=== PATIENT | female | born 1955 | race Caucasian/White ===

== ENCOUNTER 2016-06-10 22:37 | Inpatient (IN) | payer OTHER ==
[~2016-06-10] VITALS: Ht 162.6 cm; Wt 78.4 kg
[2016-06-10 23:37] VITALS: Ht 162.6 cm; Wt 78.4 kg
[2016-06-11] MEDS ORDERED: traMADol 50 MG TAB GTB PRN
[2016-06-11] MEDS ORDERED: hydrALAzine 20 MG INJ IV PRN
[2016-06-11] MEDS ORDERED: hydrALAzine 20 MG INJ IV ONE
[2016-06-11] MEDS ORDERED: ONDANSETRON 4 MG INJ IV PRN
[2016-06-11] MEDS ORDERED: KETOROLAC 30 MG INJ IV PRN
[2016-06-11] MEDS ORDERED: GLUCAGON 1 MG INJ IM PRN (01:00)
[2016-06-11] MEDS ORDERED: GLUCOSE GEL 15 GRAM TUBE BUCCAL PRN (01:00)
[2016-06-11] MEDS ORDERED: DEXTROSE 50% 50 ML SYRINGE IV PRN ×2 (01:00)
[2016-06-11] MEDS ORDERED: GLUCOSE GEL 15 GRAM TUBE PO PRN ×2 (01:00)
[2016-06-11] MEDS ORDERED: INSULIN GLARGINE [LANtus] 3 ML PEN SC ONE (01:00)
[2016-06-11] MEDS: DEXTROSE 5%-0.45% NACL 1,000 ML IV SCH ×4 (01:01→21:00)
[2016-06-11] MEDS: INSULIN ASPART [NOVOLOG] 3 ML PEN SC SCH ×5 (01:11→23:23)
[2016-06-11 05:06] LABS: ADD SCAN DIFF NO
[2016-06-11 05:10] LABS: BASOPHILS % 0.1 % (0.0-2.0); EOSINOPHILS % 0.3 % (0.0-7.0); HEMATOCRIT 37.8 % (37.0-47.0); HEMOGLOBIN 12.7 g/dl (12.0-16.0); LYMPHOCYTES % 14.8 % (15.0-51.0); MEAN CORPUSCULAR HEMOGLOBIN 30.1 pg (29.0-33.0); MEAN CORPUSCULAR HGB CONC 33.6 g/dl (32.0-37.0); MEAN CORPUSCULAR VOLUME 89.6 fl (82.0-101.0); MONOCYTE # 0.8 10^3/ul (0.3-0.9); NEUTROPHIL # 10.8 10^3/ul (1.6-7.5); NEUTROPHILS % 78.4 % (39.0-77.0); PLATELET COUNT 316 10^3/UL (140-415); RED BLOOD COUNT 4.22 10^6/ul (4.20-5.40); RED CELL DISTRIBUTION WIDTH 13.6 % (11.5-14.5); WHITE BLOOD COUNT 13.7 10^3/ul (4.8-10.8)
[2016-06-11 05:23] LABS: ALBUMIN 3.6 g/dl (3.3-4.9)
[2016-06-11 05:26] LABS: ALBUMIN/GLOBULIN RATIO 0.94; BILIRUBIN,INDIRECT 1.3 mg/dl (0-1.1); BILIRUBIN,TOTAL 1.3 mg/dl (0.2-1.3); CREATININE 0.64 mg/dl (0.44-1.00); TOTAL PROTEIN 7.4 g/dl (6.1-8.1)
[2016-06-11 05:27] LABS: CALCIUM 8.6 mg/dl (8.4-10.2); MAGNESIUM 1.9 mg/dl (1.7-2.5)
--- NOTE | 2016-06-11 06:32 | HP ---
DATE OF ADMISSION: 06/10/2016 TIME SEEN: ____ CHIEF COMPLAINT: Abdominal pain. HISTORY OF PRESENT ILLNESS: The patient is a 60-year-old female with a history of diabetes, hyperte nsion, dyslipidemia who presented to [facility] with epigastric and right upper quadrant ab dominal pain which started after drinking coffee this morning. She also reported associated 3 episo azeb of nonbloody, nonbilious vomiting. She denies any fever, chills, chest pain, shortness of breat h. Abdominal ultrasound at the outside hospital shows hepatic steatosis, gallbladder sludge, and a prominent caliber common bile duct, cannot exclude recently passed calculus or choledocholithiasis. Abdominal x-ray was done which showed prominent stool pattern and sclerotic changes of the sacroili ac joints. She was transferred here for insurance reasons. Currently, the patient is still complai jenny of abdominal pain, but improved as compared to the initial onset. The patient is not entirely sure about her past medical history and also she does not know her home medications, and unfortunate ly her medication was taken back home by family members by mistake. She is currently denying any na usea, vomiting, fever, chills, chest pain or shortness of breath. REVIEW OF SYSTEMS: A 12-point review of systems was performed, negative except as mentioned in HPI. PAST MEDICAL HISTORY: Hypertension, diabetes, and dyslipidemia. PAST SURGICAL HISTORY: Hysterectomy, . SOCIAL HISTORY: Denied a history of tobacco, alcohol, or illicit drug use. ALLERGIES: MORPHINE. HOME MEDICATIONS: 1. Formoterol inhaler. 2. Glipizide. 3. Hydrochlorothiazide. 4. [place]. 5. Insulin. 6. Lisinopril. 7. Metformin. 8. Naproxen. 9. Ranitidine. 10. Zocor. 11. Januvia. 12. Tramadol. PHYSICAL EXAMINATION: GENERAL: The patient lying in bed in no acute distress. She actually looks comfortable. Initially she was sleepy, but arousable. HEENT: No obvious head deformity. Pupils are reactive to light. Extraocular muscles intact. CARDIOVASCULAR: Slightly diaphoretic with regular rhythm. LUNGS: Clear. ABDOMEN: Soft. There is tenderness to deep palpation in the right upper quadrant area and to some extent the epigastric area with no guarding, no rigidity, no rebound tenderness. EXTREMITIES: No edema. NEUROLOGIC: No focal deficits. LABORATORY: From outside hospital shows a WBC of 17.6, hemoglobin 13.9, platelet count 305. Sodium 140, potassium 4.2, chloride 101, bicarbonate 25, BUN 13, creatinine 0.67, glucose 180, total prote in 7.3, albumin 4.3, calcium 9.3. Total bilirubin 1.1, alkaline phosphatase 70, AST 75, ALT 70. IMAGING: KUB and abdominal ultrasound showed from [place] with results as mentioned in the HPI. IMPRESSION: 1. Probable cholecystitis with choledocholithiasis. 2. Abdominal pain, most likely secondary to above. 3. Elevated transaminases, likely secondary to above. 4. Leukocytosis, again likely secondary to cholecystitis. 5. History of hypertension. 6. History of diabetes. 7. History of dyslipidemia. PLAN: Will keep her n.p.o. with IV fluid. We will provide pain medication and antiemetics as neede d. We will repeat a right upper quadrant ultrasound here, and based on the results we might follow it up with MRCP if there is any biliary dilatation or other findings concerning for choledocholithia sis. We will place a surgical consultation if it has not already been done when she initially came in to [facility]. Will check an A1c in the morning and for now she will be placed on insulin while in [facility] for her diabetes. Further workup and management per clinical course. Dictated By: HEDY APPLE/NAYAN Conf#: [id number] DID#: [id number]
--- NOTE | 2016-06-11 07:00 | RADRPT ---
PROCEDURE: US Abdomen. CLINICAL INDICATION: Right upper quadrant pain TECHNIQUE: Omer scale and color Doppler imaging of the right upper quadrant COMPARISON: None FINDINGS: The aorta and visualized inferior vena cava are unremarkable in appearance. The liver is diffusely echogenic suggesting hepatic steatosis. No definite focal liver lesion. No gallstones or sludge is s een. The gallbladder wall appears slightly prominent and 4 mm. There is mild pericholecystic fluid . No mention was made of a sonographic Christopher's sign. No intrahepatic ductal dilatation is seen. Hepatopedal flow is seen in the main portal vein. The common bile duct is dilated, measuring 8.6 mm. The right kidney measures 13.8 cm. No hydronephrosis or renal calculi are seen. The pancreas is p artially obscured by bowel gas. No ascites is seen. IMPRESSION: Study slightly limited by bowel gas. . Slight gallbladder wall thickening with adjacent pericholec ystic fluid but without visible stones. HIDA scan may be helpful if acalculous cholecystitis is fransico pected. Slightly dilated common bile duct. Consider MRCP to evaluate for choledocholithiasis. Hep atic steatosis. RPTAT: HLBE Physician Osman Date Time Electronically viewed and signed by Physician Osman on 06/11/2016 07:00 MALU/
[2016-06-11] MEDS: FAMOTIDINE 20 MG INJ IV SCH ×2 (08:25→21:00)
[2016-06-11 08:38] VITALS: BP 137/65; RESP 20
[2016-06-11] MEDS ORDERED: LANT3I SC (11:48)
[2016-06-11] MEDS ORDERED: SITA100T8 PO (11:48)
[2016-06-11] MEDS ORDERED: LISI40TA9 PO (11:48)
[2016-06-11] MEDS ORDERED: ASPI81TA3 PO (11:48)
[2016-06-11] MEDS ORDERED: CHOL100012 PO (11:48)
[2016-06-11] MEDS ORDERED: ZOC20 PO (11:48)
[2016-06-11] MEDS ORDERED: HYDR12.53 PO (11:48)
[2016-06-11] MEDS ORDERED: INSU100C3 SQ (11:48)
[2016-06-11] MEDS ORDERED: METF-731 PO (11:48)
[2016-06-11] MEDS ORDERED: CAPSAICIN 0.025% TOPICAL (11:48)
[2016-06-11] MEDS ORDERED: GLIM4TAB PO (11:48)
[2016-06-11] MEDS ORDERED: POLY17PO6 PO (11:48)
[2016-06-11] MEDS ORDERED: OMEP20CA16 PO (11:48)
[2016-06-11] MEDS ORDERED: NAPR-260 PO (11:48)
[2016-06-11] MEDS ORDERED: DIPHENHYDRAMINE 50 MG INJ IV PRN (12:00)
[2016-06-11] MEDS: HYDROmorphONE 1 MG/ML SYG IV PRN (15:18)
--- NOTE | 2016-06-11 15:19 | PN ---
Date/Time of Note Date/Time of Note DATE: 06/11/16 TIME: 15:13 Assessment/Plan VTE Prophylaxis VTE Prophylaxis Intervention: SCD's Lines/Catheters IV [facility]ter [facility] (from [facility] Peripheral IV Urinary Cath still in place: No Assessment/Plan Chief Complaint/Hosp Course Assessment and plan 1. Cholecystitis with suspected choledocholithiasis. Gallbladder ultrasound with suspicion for cholecystitis. Follow-up on MRCP for possible choledocholithiasis. Surgery consulted. We'll get child nutrition manager pending clinical course. Keep patient npo for now. Continue with analgesics as needed as well as IV hydration 2. Transaminitis likely secondary to #1. Monitor liver enzymes. Follow up on MRCP 3. Leukocytosis.. Secondary to #1. Continue on antibiotics 4. Diabetes. Continue insulin regimen. Will adjust as needed. Of note A1c at 10. Will get conservation educator to follow Disposition and plan: Follow up on MRCP. Surgeon to follow. Continue IV hydration. Discussed but of care with Dr. Rodrigues Problems: Subjective 24 Hr Interval Summary Free Text/Dictation Reports having moderate abdominal pain. Exam/Review of Systems Vital Signs Vitals Vital Signs Date Time Temp Pulse Resp B/P Pulse Ox O2 Delivery O2 Flow Rate FiO2 06/11/16 08:38 98.2 97 20 137/65 95 Intake and Output 06/10/16 06/10/16 06/11/16 15:00 23:00 07:00 Intake Total 650 ml Output Total 950 ml Balance -300 ml Exam General: Mild distress secondary to abdominal pain. Denies any nausea Eyes: pupils equal round, Anicteric sclera Neck: Supple nontender, no JVD Cardiac: Regular rate was auscultated with S1-S2 noted Pulmonary: No obvious wheezing or rhonchi GI: Upon palpation on epigastric as well as right upper abdominal quadrant. Bowel sounds active Extremities: No Obvious edema bilateral lower extremities Skin: Clean dry and intact Neurologic: Alert to person place and time and situation Results Result Diagram: 06/11/1641906/11/16419 Results 24 hrs Laboratory Tests Test 06/11/16 00:33 06/11/16 04:20 06/11/16 05:31 06/11/16 12:10 Bedside Glucose 164 161 168 Alanine Aminotransferase (ALT/SGPT) 82 H Albumin 3.6 Albumin/Globulin Ratio 0.94 Alkaline Phosphatase 70 Anion Gap 17 H Aspartate Amino Transf (AST/SGOT) 63 H Basophils # 0.0 Basophils % 0.1 Blood Urea Nitrogen 14 Calcium Level 8.6 Carbon Dioxide Level 26 Chloride Level 105 Creatinine 0.64 Direct Bilirubin 0.00 Eosinophils # 0.0 Eosinophils % 0.3 Globulin 3.80 H Glucose Level 184 Hematocrit 37.8 Hemoglobin 12.7 Hemoglobin A1c 10.0 H Indirect Bilirubin 1.3 H Lymphocytes # 2.0 Lymphocytes % 14.8 L Magnesium Level 1.9 Mean Corpuscular Hemoglobin 30.1 Mean Corpuscular Hemoglobin Concent 33.6 Mean Corpuscular Volume 89.6 Mean Platelet Volume 10.0 Monocytes # 0.8 Monocytes % 6.0 Neutrophils # 10.8 H Neutrophils % 78.4 H Nucleated Red Blood Cells # 0.0 Nucleated Red Blood Cells % 0.0 Platelet Count 316 Potassium Level 4.0 Red Blood Count 4.22 Red Cell Distribution Width 13.6 Sodium Level 144 Total Bilirubin 1.3 Total Protein 7.4 White Blood Count 13.7 H Medications Medications Current Medications Dextrose/Sodium Chloride (D5-1/2ns) 1,000 ml @ 100 mls/hr Q10H IV Last administered on 06/11/16 01:01; Admin Dose 100 MLS/HR; Start 06/11/16 at 00:00 Ketorolac Tromethamine (Toradol) 30 mg Q6H PRN IV PAIN; Start 06/11/16 at 00:00 ; Stop 06/14/16 at 00:00 Tramadol HCl (Ultram) 50 mg Q6H PRN GTB PAIN; Start 06/11/16 at 00:00 Ondansetron HCl (Zofran Inj) 4 mg Q6H PRN IV NAUSEA AND/OR VOMITING; Start 06/11 at 00:00 Famotidine (Pepcid Iv) 20 mg BID IV Last administered on 06/11/16 08:25; Admin Dose 20 MG; Start 06/11/16 at 09:00 Hydralazine HCl (Apresoline) 10 mg Q4H PRN IV SBP GREATER 160; Start 06/11/16 at 00:00 Insulin Glargine (Lantus) 10 unit HS SC ; Start 06/11/16 at 21:00 Insulin Aspart (Novolog Insulin Pen) NOVOLOG *MODERATE* ALGORI... Q6 SC Last administered on 06/11/16t 05:39; Admin Dose 2 UNIT; Start 06/11/16 at 01:00 Miscellaneous Information 1 ea NOTE XX ; Start 06/11/16 at 01:00 Glucose (Glutose) 15 gm Q15M PRN PO DECREASED GLUCOSE; Start 06/11/16 at 01:00 Glucose (Glutose) 22.5 gm Q15M PRN PO DECREASED GLUCOSE; Start 06/11/16 at 01:00 Dextrose (D50w Syringe) 25 ml Q15M PRN IV DECREASED GLUCOSE; Start 06/11/16 at 01:00 Dextrose (D50w Syringe) 50 ml Q15M PRN IV DECREASED GLUCOSE; Start 06/11/16 at 01:00 Glucagon (Glucagen) 1 mg Q15M PRN IM DECREASED GLUCOSE; Start 06/11/16 at 01:00 Glucose (Glutose) 15 gm Q15M PRN BUCCAL DECREASED GLUCOSE; Start 06/11/16 at 01: 00 Hydromorphone HCl (Dilaudid) 0.5 mg Q2 PRN IV PAIN; Start 06/11/16 at 12:00 Diphenhydramine HCl (Benadryl) 25 mg ONCE PRN IV allergy; Start 06/11/16 at 12: 00; Stop 06/13/16 at 11:59 Methylprednisolone Sodium Succinate (Solu-Medrol) 80 mg DAILY IM ; Start at 18:00 ARNAV DENT Jun 11, 2016 15:19
--- NOTE | 2016-06-11 17:19 | RADRPT ---
PROCEDURE: MRCP. CLINICAL INDICATION: Abdominal pain, suspected choledocholithiasis. TECHNIQUE: MRCP was performed. Patient was examined without contrast. 3-D coronal rotating MIP i mages of the biliary tree are available for review. COMPARISON: Ultrasound, 06/11/2016 FINDINGS: The gallbladder is distended and contains small gallstones. Gallbladder wall appears mildly thicken ed. No pericholecystic inflammation is identified. There is no intra or extrahepatic biliary dilat ation. No common duct stone, stricture or filling defect is identified. Pancreatic duct is normal in caliber. Hepatomegaly is noted (19 cm), without evidence of focal hepatic mass. Pancreas, spleen, adrenal gl ands and kidneys are unremarkable. There is no obstructive uropathy. The stomach is grossly unrema rkable. Abdominal aorta is normal in caliber. There is no retroperitoneal or nabil hepatis lymphad enopathy. No bowel obstruction, abscess or ascites is seen. The surrounding osseous structures are remarkable for degenerative spondylosis of the spine. IMPRESSION: 1. Cholelithiasis and/or gallbladder sludge are noted. Gallbladder wall appears mildly thickened. Cholecystitis is not definitely excluded - consider nuclear medicine HIDA scan for further evaluati on, if clinically warranted. 2. No choledocholithiasis or biliary dilatation is seen. 3. There is mild hepatomegaly. RPTAT: TT .George Whitehead MD, Date Time Electronically viewed and signed by .George Whitehead MD, on 06/11/2016 17:19 .R/
[2016-06-11] MEDS: PIPER-TAZO 3.375 GM IV (PMX) 100 ML IVPB SCH ×2 (17:23→23:21)
[2016-06-11] MEDS: METHYLPREDNISOLONE 125 MG INJ IV SCH (17:30)
[2016-06-11] MEDS ORDERED: METHYLPREDNISOLONE 125 MG INJ IM SCH (18:00)
[2016-06-11 20:17] VITALS: BP 153/69; RESP 18
--- NOTE | 2016-06-11 20:48 | CONS ---
Date/Time of Note Date/Time of Note DATE: 06/11/16 TIME: 20:40 Assessment/Plan Assessment/Plan Chief Complaint/Hosp Course 60-year-old female with gallstone pancreatitis and acute cholecystitis * MRCP confirms the presence of small gallstones with gallbladder wall thickening and trace pericholecystic fluid * Lipase level greater than 3000 at outside hospital. Check levels in a.m. * Monitor LFTs * Nothing by mouth/IV fluid hydration/pain control * Medical clearance for cholecystectomy upon near normalization of lipase levels The above was discussed with the patient in detail. I ensured that all of her questions were answered. Further recommendations will be made based on patient' s clinical course. Problems: Consultation Date/Type/Reason Admit Date/Time Jun 10, 2016 at 23:26 Date of Consultation: Jun 11, 2016 Type of Consultation: GENERAL SURGERY Reason for Consultation Abdominal pain Hx of Present Illness The patient is a 60-year-old female with a history of diabetes, hypertension, dyslipidemia who was transferred from [facility] with epigastric and right upper quadrant abdominal pain which started yesterday morning. It was associated with nonbilious vomiting and constipation. She denies any fever, chills, chest pain, shortness of breath. She describes the pain as radiating to her back and right shoulder. At [facility] she was found to have a leukocytosis of 17,000 with mildly elevated total bilirubin and transaminase levels. Her lipase level was greater than 3000. Abdominal ultrasound at the outside hospital shows hepatic steatosis, gallbladder sludge, and a prominent caliber common bile duct, cannot exclude recently passed calculus or choledocholithiasis. On arrival to [facility], a repeat ultrasound again did not show any evidence of choledocholithiasis but did show mildly dilated common bile duct. She then underwent an MRCP which did show small gallstones with mild gallbladder wall thickening and trace pericholecystic fluid. Her leukocytosis has improved somewhat. Her transaminases and total bilirubin remained very mildly elevated. Lipase level has not been done. Currently she reports improvement in her pain and complains of headache. 14 point review of systems was conducted and was negative except for that which is mentioned in the history of present illness Past Medical History As in history of present illness Past Surgical History and hysterectomy for fibroids Social History Smoking Status: Former smoker Exam/Review of Systems Vital Signs Vitals Vital Signs Date Time Temp Pulse Resp B/P Pulse Ox O2 Delivery O2 Flow Rate FiO2 06/11/16 20:17 98.5 92 18 153/69 92 Intake and Output 06/10/16 06/10/16 06/11/16 15:00 23:00 07:00 Intake Total 650 ml Output Total 950 ml Balance -300 ml Exam GENERAL: Awake, alert, oriented 3. No acute distress. SKIN: No jaundice. HEENT: PERRLA, EOMI, No Scleral Icterus NECK: Supple without JVD CARDIOVASCULAR: S1S2, regular rate and rhythm. No murmurs appreciated. RESPIRATORY: Clear to auscultation bilaterally. ABDOMEN: Obese, Soft, bowel sounds present, nondistended, there is epigastric and right upper quadrant tenderness to palpation without any evidence of diffuse peritonitis. EXTREMITIES: Free range of motion 4. No cyanosis, edema, or clubbing. NEUROLOGIC: Cranial nerves II-XII are intact. Sensation is intact grossly. Results Result Diagram: 06/11/16 0420 06/11/16 0420 Results 24 hrs Laboratory Tests Test 06/11/16 00:33 06/11/16 04:20 06/11/16 05:31 06/11/16 12:10 Bedside Glucose 164 161 168 Alanine Aminotransferase (ALT/SGPT) 82 H Albumin 3.6 Albumin/Globulin Ratio 0.94 Alkaline Phosphatase 70 Anion Gap 17 H Aspartate Amino Transf (AST/SGOT) 63 H Basophils # 0.0 Basophils % 0.1 Blood Urea Nitrogen 14 Calcium Level 8.6 Carbon Dioxide Level 26 Chloride Level 105 Creatinine 0.64 Direct Bilirubin 0.00 Eosinophils # 0.0 Eosinophils % 0.3 Globulin 3.80 H Glucose Level 184 Hematocrit 37.8 Hemoglobin 12.7 Hemoglobin A1c 10.0 H Indirect Bilirubin 1.3 H Lymphocytes # 2.0 Lymphocytes % 14.8 L Magnesium Level 1.9 Mean Corpuscular Hemoglobin 30.1 Mean Corpuscular Hemoglobin Concent 33.6 Mean Corpuscular Volume 89.6 Mean Platelet Volume 10.0 Monocytes # 0.8 Monocytes % 6.0 Neutrophils # 10.8 H Neutrophils % 78.4 H Nucleated Red Blood Cells # 0.0 Nucleated Red Blood Cells % 0.0 Platelet Count 316 Potassium Level 4.0 Red Blood Count 4.22 Red Cell Distribution Width 13.6 Sodium Level 144 Total Bilirubin 1.3 Total Protein 7.4 White Blood Count 13.7 H Test 06/11/16 16:32 Bedside Glucose 169 Medications Medications Current Medications Dextrose/Sodium Chloride (D5-1/2ns) 1,000 ml @ 100 mls/hr Q10H IV Last administered on 06/11/16 12:30; Admin Dose 100 MLS/HR; Start 06/11/16 at 00:00 Ketorolac Tromethamine (Toradol) 30 mg Q6H PRN IV PAIN; Start 06/11/16 at 00:00 ; Stop 06/14/16 at 00:00 Tramadol HCl (Ultram) 50 mg Q6H PRN GTB PAIN; Start 06/11/16 at 00:00 Ondansetron HCl (Zofran Inj) 4 mg Q6H PRN IV NAUSEA AND/OR VOMITING; Start 06/11 at 00:00 Famotidine (Pepcid Iv) 20 mg BID IV Last administered on 06/11/16 08:25; Admin Dose 20 MG; Start 06/11/16 at 09:00 Hydralazine HCl (Apresoline) 10 mg Q4H PRN IV SBP GREATER 160; Start 06/11/16 at 00:00 Insulin Glargine (Lantus) 10 unit HS SC ; Start 06/11/16 at 21:00 Insulin Aspart (Novolog Insulin Pen) NOVOLOG *MODERATE* ALGORI... Q6 SC Last administered on 06/11/16 17:32; Admin Dose 2 UNIT; Start 06/11/16 at 01:00 Miscellaneous Information 1 ea NOTE XX ; Start 06/11/16 at 01:00 Glucose (Glutose) 15 gm Q15M PRN PO DECREASED GLUCOSE; Start 06/11/16 at 01:00 Glucose (Glutose) 22.5 gm Q15M PRN PO DECREASED GLUCOSE; Start 06/11/16 at 01:00 Dextrose (D50w Syringe) 25 ml Q15M PRN IV DECREASED GLUCOSE; Start 06/11/16 at 01:00 Dextrose (D50w Syringe) 50 ml Q15M PRN IV DECREASED GLUCOSE; Start 06/11/16 at 01:00 Glucagon (Glucagen) 1 mg Q15M PRN IM DECREASED GLUCOSE; Start 06/11/16 at 01:00 Glucose (Glutose) 15 gm Q15M PRN BUCCAL DECREASED GLUCOSE; Start 06/11/16 at 01: 00 Hydromorphone HCl (Dilaudid) 0.5 mg Q2 PRN IV PAIN Last administered on 15:18; Admin Dose 0.5 MG; Start 06/11/16 at 12:00 Diphenhydramine HCl 25 mg 25 mg ONCE PRN IV allergy; Start 06/11/16 at 12:00; Stop 06/13/16 at 11:59 Piperacillin Sod/ Tazobactam Sod (Zosyn 3.375gm/ 100 ml (Pmx)) 100 ml @ 200 mls /hr Q6 IVPB Last administered on 06/11/16 17:23; Admin Dose 200 MLS/HR; Start 06/11/16 at 18:00 Methylprednisolone Sodium Succinate (Solu-Medrol) 80 mg DAILY IV Last administered on 06/11/16 17:30; Admin Dose 80 MG; Start 06/11/16 at 17:30 Procedures Procedures PROCEDURE: MRCP. CLINICAL INDICATION: Abdominal pain, suspected choledocholithiasis. TECHNIQUE: MRCP was performed. Patient was examined without contrast. 3-D coronal rotating MIP images of the biliary tree are available for review. COMPARISON: Ultrasound, 06/11/2016 FINDINGS: The gallbladder is distended and contains small gallstones. Gallbladder wall appears mildly thickened. No pericholecystic inflammation is identified. There is no intra or extrahepatic biliary dilatation. No common duct stone, stricture or filling defect is identified. Pancreatic duct is normal in caliber. Hepatomegaly is noted (19 cm), without evidence of focal hepatic mass. Pancreas , spleen, adrenal glands and kidneys are unremarkable. There is no obstructive uropathy. The stomach is grossly unremarkable. Abdominal aorta is normal in caliber. There is no retroperitoneal or nabil hepatis lymphadenopathy. No bowel obstruction, abscess or ascites is seen. The surrounding osseous structures are remarkable for degenerative spondylosis of the spine. IMPRESSION: 1. Cholelithiasis and/or gallbladder sludge are noted. Gallbladder wall appears mildly thickened. Cholecystitis is not definitely excluded - consider nuclear medicine HIDA scan for further evaluation, if clinically warranted. 2. No choledocholithiasis or biliary dilatation is seen. 3. There is mild hepatomegaly. RPTAT: TT .George Whitehead MD, MD Date Time Electronically viewed and signed by .George Whitehead MD, on 06/11/2016 17: 19 .R/ CC: ARNAV DENT MICHAEL A. MD Jun 11, 2016 20:48
[2016-06-11] MEDS ORDERED: INSULIN GLARGINE [LANtus] 3 ML PEN SC SCH (21:00)
--- NOTE | 2016-06-11 22:27 | RADRPT ---
PROCEDURE: XR Chest. CLINICAL INDICATION: Shortness of breath. TECHNIQUE: A single portable view of the chest was obtained. COMPARISON: None FINDINGS: The aorta is tortuous and atherosclerotic. The cardiomediastinal silhouette is otherwise within nor mal limits. Linear scarring is seen in the right upper lung zone. The remaining lungs and pleural sp aces are clear. The soft tissues and osseous structures demonstrate benign age related senescent ch anges. IMPRESSION: No acute cardiopulmonary disease. Linear scarring in the right upper lung zone. RPTAT: HPNM Physician Merary Date Time Electronically viewed and signed by Physician Merary on 06/11/2016 22:26 /
[2016-06-12 05:33] LABS: ADD SCAN DIFF NO
[2016-06-12] MEDS: DEXTROSE 5%-0.45% NACL 1,000 ML IV SCH ×2 (05:34→15:23)
[2016-06-12] MEDS: PIPER-TAZO 3.375 GM IV (PMX) 100 ML IVPB SCH ×4 (05:35→23:46)
[2016-06-12] MEDS: INSULIN ASPART [NOVOLOG] 3 ML PEN SC SCH ×6 (05:41→20:46)
[2016-06-12 05:43] LABS: HEMATOCRIT 36.5 % (37.0-47.0); HEMOGLOBIN 11.8 g/dl (12.0-16.0); LYMPHOCYTES # 1.2 10^3/ul (0.8-2.9); LYMPHOCYTES % 11.9 % (15.0-51.0); MEAN CORPUSCULAR HEMOGLOBIN 29.3 pg (29.0-33.0); MEAN CORPUSCULAR HGB CONC 32.3 g/dl (32.0-37.0); MEAN CORPUSCULAR VOLUME 90.6 fl (82.0-101.0); MONOCYTE # 0.2 10^3/ul (0.3-0.9); MONOCYTES % 2.1 % (0.0-11.0); NEUTROPHIL # 8.4 10^3/ul (1.6-7.5); NEUTROPHILS % 85.5 % (39.0-77.0); PLATELET COUNT 278 10^3/UL (140-415); RED BLOOD COUNT 4.03 10^6/ul (4.20-5.40); RED CELL DISTRIBUTION WIDTH 13.8 % (11.5-14.5); WHITE BLOOD COUNT 9.8 10^3/ul (4.8-10.8)
[2016-06-12 06:01] LABS: POTASSIUM 4.1 mmol/L (3.5-5.1)
[2016-06-12 06:02] LABS: INR 1.17; PT RATIO 1.2
[2016-06-12 06:04] LABS: CREATININE 0.59 mg/dl (0.44-1.00)
[2016-06-12 06:22] LABS: ALBUMIN 3.4 g/dl (3.3-4.9)
[2016-06-12 06:23] LABS: POTASSIUM 4.4 mmol/L (3.5-5.1)
[2016-06-12 06:25] LABS: CREATININE 0.57 mg/dl (0.44-1.00)
[2016-06-12 06:26] LABS: ALBUMIN/GLOBULIN RATIO 1.13; TOTAL PROTEIN 6.4 g/dl (6.1-8.1)
[2016-06-12 08:31] VITALS: BP 148/66; RESP 20
[2016-06-12] MEDS: FAMOTIDINE 20 MG INJ IV SCH ×2 (08:32→20:44)
[2016-06-12] MEDS: METHYLPREDNISOLONE 125 MG INJ IV SCH (08:32)
--- NOTE | 2016-06-12 09:28 | QN ---
Documentation Comment Patient is mild to moderate risk for surgical intervention (cholecystectomy), but the benefits of surgical intervention make it reasonable to proceed. Still noted with elevated lipase enzymes. Likely endoscopic cholecystectomy status post improvement of pancreatitis. Discussed plan of care with ARNAV Dudley Jun 12, 2016 09:28
[2016-06-12] MEDS: HYDROmorphONE 1 MG/ML SYG IV PRN ×2 (10:59→15:27)
--- NOTE | 2016-06-12 13:44 | RADRPT ---
Vent Rate: 78 bpm RR Interval: 0 msec [place] Interval: 164 msec QRS Duration: 92 msec QT Interval: 374 msec QTC Interval: 426 msec P-R-T [place]: 52 - 55 - 20 degrees Normal sinus rhythm Normal ECG Electronically Signed By: Brent Muir [id number]
--- NOTE | 2016-06-12 15:14 | PN ---
Date/Time of Note Date/Time of Note DATE: 06/12/16 TIME: 15:11 Assessment/Plan VTE Prophylaxis VTE Prophylaxis Intervention: SCD's Lines/Catheters IV [facility]atheter Type (from [facility]): Peripheral IV Urinary Cath still in place: No Assessment/Plan Chief Complaint/Hosp Course Assessment and plan 1. Cholecystitis with suspected choledocholithiasis. Gallbladder ultrasound with suspicion for cholecystitis. Per MRI of the abdomen: - Cholelithiasis and/or gallbladder sludge are noted. Gallbladder wall appears mildly thickened. Cholecystitis is not definitely excluded - consider nuclear medicine HIDA scan for further evaluation, if clinically warranted. - No choledocholithiasis or biliary dilatation is seen. - There is mild hepatomegaly. Continue with surgeon recommendations. Tentative plan for laparoscopic cholecystectomy 2. Pancreatitis. Continue npo for now. Continue with IV hydration. Analgesics as needed. 3. Transaminitis likely secondary to #1. Monitor liver enzymes. 4. Leukocytosis.. Secondary to #1. Continue on antibiotics for now 4. Diabetes. Continue insulin regimen. Of note A1c at 10. Discussed with clinical systems educator. Insulin regimen adjusted Disposition and plan: Await for clinical improvement of pancreatitis. Tentative plan for laparoscopic cholecystectomy. Continue inpatient monitoring and supportive care Discussed but of care with Dr. Rodrigues Problems: Subjective 24 Hr Interval Summary Free Text/Dictation Still reports abdominal pain but little less today. Exam/Review of Systems Vital Signs Vitals Vital Signs Date Time Temp Pulse Resp B/P Pulse Ox O2 Delivery O2 Flow Rate FiO2 06/12/16 08:31 97.8 75 20 148/66 94 Intake and Output 06/11/16 06/11/16 06/12/16 15:00 23:00 07:00 Intake Total 1400 ml 1000 ml Balance 1400 ml 1000 ml Exam General: Less distress noted today. Noted with less abdominal pain Eyes: pupils equal round, Anicteric sclera Neck: No obvious JVD seen Cardiac: Still noted with regular rate on auscultation Pulmonary: No adventitious lung sounds GI: Still has some pain on palpation of epigastric area Extremities: No Obvious edema bilateral lower extremities today Skin: Clean dry and intact Neurologic: Alert to person place and time and situation Results Result Diagram: 06/12/16 0445 06/12/16 0445 Results 24 hrs Laboratory Tests Test 06/11/16 16:32 06/11/16 21:02 06/11/16 23:20 06/12/16 04:45 Bedside Glucose 169 224 H 272 H Alanine Aminotransferase (ALT/SGPT) 57 Albumin 3.4 Albumin/Globulin Ratio 1.13 Alkaline Phosphatase 74 Anion Gap 16 Aspartate Amino Transf (AST/SGOT) 25 Basophils # 0.0 Basophils % 0.0 Blood Urea Nitrogen 12 Calcium Level 9.0 Carbon Dioxide Level 24 Chloride Level 106 Creatinine 0.57 Direct Bilirubin 0.00 Eosinophils # 0.0 Eosinophils % 0.0 Globulin 3.00 Glucose Level 258 H Hematocrit 36.5 L Hemoglobin 11.8 L INR International Normalized Ratio 1.17 Indirect Bilirubin 1.0 Lipase 1748 H Lymphocytes # 1.2 Lymphocytes % 11.9 L Mean Corpuscular Hemoglobin 29.3 Mean Corpuscular Hemoglobin Concent 32.3 Mean Corpuscular Volume 90.6 Mean Platelet Volume 10.0 Monocytes # 0.2 L Monocytes % 2.1 Neutrophils # 8.4 H Neutrophils % 85.5 H Nucleated Red Blood Cells # 0.0 Nucleated Red Blood Cells % 0.0 Platelet Count 278 Potassium Level 4.4 Prothrombin Time 15.0 H Prothrombin Time Ratio 1.2 Red Blood Count 4.03 L Red Cell Distribution Width 13.8 Sodium Level 142 Total Bilirubin 1.0 Total Protein 6.4 # White Blood Count 9.8 # Test 06/12/16 05:33 06/12/16 08:04 06/12/16 12:01 Bedside Glucose 241 H 210 258 H Medications Medications Current Medications Dextrose/Sodium Chloride (D5-1/2ns) 1,000 ml @ 100 mls/hr Q10H IV Last administered on 06/12/16 05:34; Admin Dose 100 MLS/HR; Start 06/11/16 at 00:00 Ketorolac Tromethamine (Toradol) 30 mg Q6H PRN IV PAIN; Start 06/11/16 at 00:00 ; Stop 06/14/16 at 00:00; Status Future Hold Tramadol HCl (Ultram) 50 mg Q6H PRN GTB PAIN; Start 06/11/16 at 00:00 Ondansetron HCl (Zofran Inj) 4 mg Q6H PRN IV NAUSEA AND/OR VOMITING Last administered on 06/12/16 13:01; Admin Dose 4 MG; Start 06/11/16 at 00:00 Famotidine (Pepcid Iv) 20 mg BID IV Last administered on 06/12/16 08:32; Admin Dose 20 MG; Start 06/11/16 at 09:00 Hydralazine HCl (Apresoline) 10 mg Q4H PRN IV SBP GREATER 160; Start 06/11/16 at 00:00 Miscellaneous Information 1 ea NOTE XX ; Start 06/11/16 at 01:00 Glucose (Glutose) 15 gm Q15M PRN PO DECREASED GLUCOSE; Start 06/11/16 at 01:00 Glucose (Glutose) 22.5 gm Q15M PRN PO DECREASED GLUCOSE; Start 06/11/16 at 01:00 Dextrose (D50w Syringe) 25 ml Q15M PRN IV DECREASED GLUCOSE; Start 06/11/16 at 01:00 Dextrose (D50w Syringe) 50 ml Q15M PRN IV DECREASED GLUCOSE; Start 06/11/16 at 01:00 Glucagon (Glucagen) 1 mg Q15M PRN IM DECREASED GLUCOSE; Start 06/11/16 at 01:00 Glucose (Glutose) 15 gm Q15M PRN BUCCAL DECREASED GLUCOSE; Start 06/11/16 at 01: 00 Hydromorphone HCl (Dilaudid) 0.5 mg Q2 PRN IV PAIN Last administered on 10:59; Admin Dose 0.5 MG; Start 06/11/16 at 12:00 Diphenhydramine HCl 25 mg 25 mg ONCE PRN IV allergy; Start 06/11/16 at 12:00; Stop 06/13/16 at 11:59 Piperacillin Sod/ Tazobactam Sod (Zosyn 3.375gm/ 100 ml (Pmx)) 100 ml @ 200 mls /hr Q6 IVPB Last administered on 06/12/16 12:03; Admin Dose 200 MLS/HR; Start 06/11/16 at 18:00 Methylprednisolone Sodium Succinate (Solu-Medrol) 80 mg DAILY IV Last administered on 06/12/16 08:32; Admin Dose 80 MG; Start 06/11/16 at 17:30 Insulin Glargine (Lantus) 14 unit HS SC ; Start 06/12/16 at 21:00 Diagnostic Test (Pha) (Accucheck) 1 ea 02 XX ; Start 06/13/16 at 02:00 ARNAV DENT Jun 12, 2016 15:14
--- NOTE | 2016-06-12 18:19 | PN ---
Date/Time of Note Date/Time of Note DATE: 06/12/16 TIME: 18:16 Assessment/Plan Lines/Catheters IV Catheter Type (from [facility]): Peripheral IV Nguyen in Place (from [facility]): No Assessment/Plan Assessment/Plan 60-year-old female with gallstone pancreatitis and acute cholecystitis * MRCP confirms the presence of small gallstones with gallbladder wall thickening and trace pericholecystic fluid * Lipase level still over 1000. Continue to monitor * LFTs improved * May have clear liquids. Nothing by mouth after midnight * Medical clearance has been obtained. We'll tentatively plan for cholecystectomy tomorrow if lipase levels are near normal. The above was discussed with the patient in detail. I ensured that all of her questions were answered. Further recommendations will be made based on patient' s clinical course. Subjective 24 Hr Interval Summary Complains of headache. Denies abdominal pain. Afebrile Exam/Review of Systems Vital Signs Vitals Vital Signs Date Time Temp Pulse Resp B/P Pulse Ox O2 Delivery O2 Flow Rate FiO2 06/12/16 08:31 97.8 75 20 148/66 94 Intake and Output 06/11/16 06/11/16 06/12/16 15:00 23:00 07:00 Intake Total 1400 ml 1000 ml Balance 1400 ml 1000 ml Exam Free Text/Dictation GENERAL: Awake, alert, oriented 3. No acute distress. SKIN: No jaundice. HEENT: PERRLA, EOMI, No Scleral Icterus CARDIOVASCULAR: S1S2, regular rate and rhythm. No murmurs appreciated. RESPIRATORY: Clear to auscultation bilaterally. ABDOMEN: Obese, Soft, bowel sounds present, nondistended, nontender to palpation EXTREMITIES: Free range of motion 4. No cyanosis, edema, or clubbing. Results Result Diagram: 06/12/16 0445 06/12/16 0445 RAUL DONAHUE MD Jun 12, 2016 18:19
[2016-06-12 19:50] VITALS: BP 143/66; RESP 19
[2016-06-12] MEDS: INSULIN GLARGINE [LANtus] 3 ML PEN SC SCH (20:47)
[2016-06-12 21:23] VITALS: BP 125/72; PULSE 68; RESP 18
[2016-06-13] VITALS (19 sets, daily range): BP systolic 122–169; BP diastolic 60–90; PULSE 100–118; RESP 17–28
[2016-06-13] MEDS: DEXTROSE 5%-0.45% NACL 1,000 ML IV SCH ×3 (01:28→22:43)
[2016-06-13] MEDS: ACCUCHECK XX SCH (01:30)
[2016-06-13 05:08] LABS: ADD SCAN DIFF NO
[2016-06-13 05:24] LABS: BASOPHILS % 0.1 % (0.0-2.0); EOSINOPHILS % 0.1 % (0.0-7.0); HEMATOCRIT 35.4 % (37.0-47.0); HEMOGLOBIN 11.5 g/dl (12.0-16.0); LYMPHOCYTES # 2.1 10^3/ul (0.8-2.9); LYMPHOCYTES % 19.9 % (15.0-51.0); MEAN CORPUSCULAR HEMOGLOBIN 29.8 pg (29.0-33.0); MEAN CORPUSCULAR HGB CONC 32.5 g/dl (32.0-37.0); MEAN CORPUSCULAR VOLUME 91.7 fl (82.0-101.0); MEAN PLATELET VOLUME 10.3 fl (7.4-10.4); MONOCYTE # 0.6 10^3/ul (0.3-0.9); MONOCYTES % 5.2 % (0.0-11.0); NEUTROPHILS % 74.3 % (39.0-77.0); PLATELET COUNT 298 10^3/UL (140-415); RED BLOOD COUNT 3.86 10^6/ul (4.20-5.40); RED CELL DISTRIBUTION WIDTH 13.7 % (11.5-14.5); WHITE BLOOD COUNT 10.8 10^3/ul (4.8-10.8)
[2016-06-13] MEDS: PIPER-TAZO 3.375 GM IV (PMX) 100 ML IVPB SCH ×4 (05:47→23:32)
[2016-06-13 06:15] LABS: POTASSIUM 3.7 mmol/L (3.5-5.1)
[2016-06-13 06:17] LABS: CREATININE 0.67 mg/dl (0.44-1.00)
[2016-06-13 06:18] LABS: CALCIUM 8.9 mg/dl (8.4-10.2)
[2016-06-13] MEDS ORDERED: CEFAZOLIN 1 GM INJ ONE (07:00)
[2016-06-13] MEDS: METHYLPREDNISOLONE 125 MG INJ IV SCH (09:14)
[2016-06-13] MEDS: FAMOTIDINE 20 MG INJ IV SCH ×2 (09:15→22:40)
[2016-06-13] MEDS: INSULIN ASPART [NOVOLOG] 3 ML PEN SC SCH ×7 (09:19→22:47)
--- NOTE | 2016-06-13 16:08 | PN ---
Date/Time of Note Date/Time of Note DATE: 06/13/16 TIME: 16:06 Assessment/Plan VTE Prophylaxis VTE Prophylaxis Intervention: SCD's Lines/Catheters IV Catheter Type (from [facility]): Peripheral IV Urinary Cath still in place: No Assessment/Plan Chief Complaint/Hosp Course Assessment and plan 1. Cholecystitis with suspected choledocholithiasis. Gallbladder ultrasound with suspicion for cholecystitis. Per MRI of the abdomen: - Cholelithiasis and/or gallbladder sludge are noted. Gallbladder wall appears mildly thickened. Cholecystitis is not definitely excluded - consider nuclear medicine HIDA scan for further evaluation, if clinically warranted. - No choledocholithiasis or biliary dilatation is seen. - There is mild hepatomegaly. Continue with surgeon recommendations. Tentative plan for laparoscopic cholecystectomy in June 13, 2016. Will follow postop 2. Pancreatitis. Continue IV hydration. Improved at this time. 3. Transaminitis likely secondary to #1. Monitor liver enzymes. 4. Leukocytosis.. Secondary to #1. Continue on antibiotics for now. Antipyretics for fever 4. Diabetes. Continue insulin regimen. Of note A1c at 10. Discussed with staff educator. Insulin regimen adjusted. Will continue current regimen Disposition and plan: Pancreatitis improved. Plan for laparoscopic cholecystectomy. Will follow Discussed but of care with Dr. Rodrigues Problems: Subjective 24 Hr Interval Summary Free Text/Dictation Less abdominal pain reported at this time. No reports of nausea vomiting. Exam/Review of Systems Vital Signs Vitals Vital Signs Date Time Temp Pulse Resp B/P Pulse Ox O2 Delivery O2 Flow Rate FiO2 06/13/16 08:10 97.8 20 152/90 96 06/12/16 21:23 68 Room Air Intake and Output 06/12/16 06/12/16 06/13/16 15:00 23:00 07:00 Intake Total 100 ml 1000 ml 1800 ml Output Total 1400 ml 1400 ml Balance 100 ml -400 ml 400 ml Exam General: Comfortable at present. No apparent distress Eyes: pupils equal round, Anicteric sclera Neck: No JVD Cardiac: Regular rate auscultated Pulmonary: No adventitious lung sounds GI: Less pain noted on upper abdominal quadrants Extremities: No edema BLE Skin: Clean dry and intact Neurologic: Alert to person place and time and situation Results Result Diagram: 06/13/16 0415 06/13/16 0415 Results 24 hrs Laboratory Tests Test 06/12/16 17:26 06/12/16 19:52 06/13/16 01:30 06/13/16 04:15 Bedside Glucose 284 H 293 H 210 Anion Gap 14 Basophils # 0.0 Basophils % 0.1 Blood Urea Nitrogen 14 Calcium Level 8.9 Carbon Dioxide Level 26 Chloride Level 107 Creatinine 0.67 Eosinophils # 0.0 Eosinophils % 0.1 Glucose Level 215 Hematocrit 35.4 L Hemoglobin 11.5 L Lipase 315 H Lymphocytes # 2.1 Lymphocytes % 19.9 Mean Corpuscular Hemoglobin 29.8 Mean Corpuscular Hemoglobin Concent 32.5 Mean Corpuscular Volume 91.7 Mean Platelet Volume 10.3 Monocytes # 0.6 Monocytes % 5.2 Neutrophils # 8.0 H Neutrophils % 74.3 Nucleated Red Blood Cells # 0.0 Nucleated Red Blood Cells % 0.0 Platelet Count 298 Potassium Level 3.7 Red Blood Count 3.86 L Red Cell Distribution Width 13.7 Sodium Level 143 White Blood Count 10.8 Test 06/13/16 08:48 06/13/16 12:40 Bedside Glucose 190 170 Medications Medications Current Medications Dextrose/Sodium Chloride (D5-1/2ns) 1,000 ml @ 100 mls/hr Q10H IV Last administered on 06/13/16 12:49; Admin Dose 100 MLS/HR; Start 06/11/16 at 00:00 Ketorolac Tromethamine (Toradol) 30 mg Q6H PRN IV PAIN; Start 06/11/16 at 00:00 ; Stop 06/14/16 at 00:00; Status Future Hold Tramadol HCl (Ultram) 50 mg Q6H PRN GTB PAIN; Start 06/11/16 at 00:00 Ondansetron HCl (Zofran Inj) 4 mg Q6H PRN IV NAUSEA AND/OR VOMITING Last administered on 06/12/16 13:01; Admin Dose 4 MG; Start 06/11/16 at 00:00 Famotidine (Pepcid Iv) 20 mg BID IV Last administered on 06/13/16 09:15; Admin Dose 20 MG; Start 06/11/16 at 09:00 Hydralazine HCl (Apresoline) 10 mg Q4H PRN IV SBP GREATER 160; Start 06/11/16 at 00:00 Miscellaneous Information 1 ea NOTE XX ; Start 06/11/16 at 01:00 Glucose (Glutose) 15 gm Q15M PRN PO DECREASED GLUCOSE; Start 06/11/16 at 01:00 Glucose (Glutose) 22.5 gm Q15M PRN PO DECREASED GLUCOSE; Start 06/11/16 at 01:00 Dextrose (D50w Syringe) 25 ml Q15M PRN IV DECREASED GLUCOSE; Start 06/11/16 at 01:00 Dextrose (D50w Syringe) 50 ml Q15M PRN IV DECREASED GLUCOSE; Start 06/11/16 at 01:00 Glucagon (Glucagen) 1 mg Q15M PRN IM DECREASED GLUCOSE; Start 06/11/16 at 01:00 Glucose (Glutose) 15 gm Q15M PRN BUCCAL DECREASED GLUCOSE; Start 06/11/16 at 01: 00 Hydromorphone HCl 0.5 mg 0.5 mg Q2 PRN IV PAIN Last administered on 06/12/16 15 :27; Admin Dose 0.5 MG; Start 06/11/16 at 12:00 Piperacillin Sod/ Tazobactam Sod (Zosyn 3.375gm/ 100 ml (Pmx)) 100 ml @ 200 mls /hr Q6 IVPB Last administered on 06/13/16 12:45; Admin Dose 200 MLS/HR; Start 06/11/16 at 18:00 Methylprednisolone Sodium Succinate (Solu-Medrol) 80 mg DAILY IV Last administered on 06/13/16 09:14; Admin Dose 80 MG; Start 06/11/16 at 17:30 Insulin Glargine (Lantus) 14 unit HS SC Last administered on 06/12/16 20:47; Admin Dose 14 UNIT; Start 06/12/16 at 21:00 Diagnostic Test (Pha) (Accucheck) 1 ea 02 XX Last administered on 06/13/16 01: 30; Admin Dose 1 EA; Start 06/13/16 at 02:00 ARNAV DENT Jun 13, 2016 16:07
--- NOTE | 2016-06-13 18:25 | HPN ---
Date/Time of Note Date/Time of Note DATE: 06/13/16 TIME: 18:25 Interval H&P Admission Note Pt. seen H&P reviewed: No system changes RAUL DONAHUE MD Jun 13, 2016 18:25
[2016-06-13] MEDS ORDERED: BUPIVACAINE 0.25% (MPF) 30 ML INJ ONE (18:56)
[2016-06-13] MEDS ORDERED: MIDAZOLAM 1 MG/ML 2 ML INJ ONE (19:14)
[2016-06-13] MEDS ORDERED: NEOSTIGMINE 3 MG/3 ML SYRINGE ONE (19:15)
[2016-06-13] MEDS ORDERED: ONDANSETRON 4 MG INJ ONE (19:15)
[2016-06-13] MEDS ORDERED: PROPOFOL 20 ML ONE (19:15)
[2016-06-13] MEDS ORDERED: ROCURONIUM 50 MG INJ ONE (19:15)
[2016-06-13] MEDS ORDERED: GLYCOPYRROLATE 0.4 MG INJ ONE (19:15)
[2016-06-13] MEDS ORDERED: DEXAMETHASONE 4 MG/ML 1 ML INJ ONE (19:15)
[2016-06-13] MEDS ORDERED: LIDOCAINE 100 MG SYRINGE ONE (19:15)
[2016-06-13] MEDS ORDERED: hydrALAzine 20 MG INJ ONE (19:34)
[2016-06-13] MEDS ORDERED: FENTAnyl 50 MCG/ML VIAL IV PRN ×3 (20:00)
[2016-06-13] MEDS ORDERED: DIPHENHYDRAMINE 50 MG INJ IV PRN (20:00)
[2016-06-13] MEDS ORDERED: TRIMETHOBENZAMIDE 100 MG/ML VIAL IM PRN (20:00)
[2016-06-13] MEDS ORDERED: HYDROmorphONE (0.2 MG/ML) 10ML SYG IV PRN ×3 (20:00)
[2016-06-13] MEDS ORDERED: hydrALAzine 20 MG INJ IV PRN (20:00)
[2016-06-13] MEDS ORDERED: LABETALOL HCL 20MG INJ IV PRN (20:00)
[2016-06-13] MEDS ORDERED: EPHEDrine SULFATE 50 MG/5 ML SYG IV PRN (20:00)
[2016-06-13] MEDS ORDERED: MIDAZOLAM 1 MG/ML 2 ML INJ IV PRN (20:00)
[2016-06-13] MEDS ORDERED: MEPERIDINE 25 MG INJ IV PRN (20:00)
[2016-06-13] MEDS ORDERED: ONDANSETRON 4 MG INJ IV PRN ×2 (20:00→21:00)
--- NOTE | 2016-06-13 20:46 | OPR ---
Date/Time of Note Date/Time of Note DATE: 06/13/16 TIME: 20:39 Operative Report Procedure Date: Jun 13, 2016 Preoperative Diagnosis 1. Gallstone pancreatitis 2. Acute cholecystitis Postoperative Diagnosis 1. Gallstone pancreatitis 2. Acute cholecystitis Operation Performed Laparoscopic cholecystectomy Surgeon: RAUL DONAHUE MD Anesthesia: general Anesthesiologist: Ronald Beasley M.D. Estimated Blood Loss: 10 - 50 ml's Specimens Gallbladder Complications: None Pt Condition Post Procedure: stable Disposition: PACU Indications The patient is a obese 60-year-old female who presented with right upper quadrant and epigastric abdominal pain. The patient had elevated liver function tests and lipase level. An MRCP showed gallstones with gallbladder wall thickening and mild pericholecystic fluid. The MRCP was negative for choledocholithiasis. Upon near normalization of the patient's lipase levels she was scheduled for laparoscopic cholecystectomy; possible open as definitive treatment to prevent further sequelae of gallstone disease which include but are not limited to: Gangrenous cholecystitis, choledocholithiasis, recurrent gallstone pancreatitis, ascending cholangitis, etc. All risks and benefits of the procedure including but not limited to: Wound infection, excessive bleeding , common bile duct injury, postoperative biliary leak, retained common bile duct stone, injury to intra-abdominal organs, conversion to open procedure etc. were all explained to the patient in full detail. She fully understood and wished to proceed with the procedure. Informed consent was therefore obtained. Operative Findings Distended and edematous gallbladder Procedure Description The patient was operating room and placed supine on the operating table. Bilateral sequential compression devices were placed on both lower extremities. A dose of broad-spectrum perioperative intravenous antibiotics was given. After the induction of smooth general endotracheal anesthesia the patient's abdomen was prepped and draped in the standard surgical fashion. After performance of the surgical timeout a 5 mm incision was made in the inferior umbilicus and a Veress needle was used to access the intra-abdominal cavity atraumatically. Pneumoperitoneum was then obtained and the Veress needle was exchanged for a 5 mm trocar through which a 5 mm laparoscope was placed. Three further working ports were then placed a 12 mm port in the sub-xiphoid region and two 5 mm ports in the right upper quadrant. All port sites were anesthetized with 0.25% Marcaine prior to incision. Using atraumatic graspers the gallbladder was grasped and retracted superiorly and laterally. There was thick adhesions of the omentum to the gallbladder. These were taken down using, in addition of blunt dissection and hook electrocautery. Eventually, the area of Lynne's pouch was visualized. Dissection was begun in this area using a combination of blunt dissection and hook electrocautery. There were a lot of fibrinous inflammatory adhesions present. The cystic duct was identified as it entered straight into the neck of the gallbladder. It was dissected free of surrounding tissues and clipped proximally and distally 3 and transected using EndoShears. Dissection was then continued posteriorly. The cystic artery was identified and dissected free of surrounding tissues. It too was clipped proximally and distally 3 and transected using EndoShears. The gallbladder was then dissected off the liver bed using electrocautery. During the course of dissection of the gallbladder off the liver bed there was bleeding from an artery into the liver bed. This was where most of the operative blood loss occurred. It was controlled with application of clips. The gallbladder was edematous and its attachment to the liver bed. Once completely free the gallbladder was placed in an Endo Catch bag and withdrawn through the the subxiphoid port site and passed off the field as specimen. Hemostasis was then inspected for and noted to be adequate. The abdomen was then irrigated with several liters of warm normal saline and the irrigant returned crystal clear. The fascia of the subxiphoid port site was then reapproximated using an Endo Close device and a 0 Vicryl suture. Pneumoperitoneum was then released and all remaining trochars were withdrawn under direct vision. The subcutaneous tissues were irrigated with more warm normal saline and further local anesthesia was applied around the skin of the incision sites. The skin was then reapproximated using 4-0 Monocryl sutures in subcuticular fashion. The incisions were cleaned and Dermabond was applied to the incisions and the patient was awoken from anesthesia and transported to the recovery room in stable condition. All counts were correct at the end of the case 2. RAUL DONAHUE MD Jun 13, 2016 20:46
[2016-06-13] MEDS ORDERED: ACETAMINOPHEN 325 MG TAB PO PRN (21:00)
[2016-06-13] MEDS: INSULIN GLARGINE [LANtus] 3 ML PEN SC SCH (22:47)
[2016-06-14] MEDS: HYDROmorphONE 1 MG/ML SYG IV PRN (00:08)
[2016-06-14 00:12] VITALS: BP 136/62; PULSE 105; RESP 19
[2016-06-14] MEDS: ACCUCHECK XX SCH (01:25)
[2016-06-14] MEDS: PIPER-TAZO 3.375 GM IV (PMX) 100 ML IVPB SCH ×2 (06:25→13:09)
[2016-06-14 06:37] LABS: ADD SCAN DIFF NO
[2016-06-14 06:53] LABS: BASOPHILS % 0.1 % (0.0-2.0); HEMATOCRIT 34.5 % (37.0-47.0); HEMOGLOBIN 11.4 g/dl (12.0-16.0); LYMPHOCYTES # 1.2 10^3/ul (0.8-2.9); LYMPHOCYTES % 10.8 % (15.0-51.0); MEAN CORPUSCULAR VOLUME 90.8 fl (82.0-101.0); MEAN PLATELET VOLUME 10.1 fl (7.4-10.4); MONOCYTE # 0.5 10^3/ul (0.3-0.9); MONOCYTES % 4.4 % (0.0-11.0); NEUTROPHIL # 9.3 10^3/ul (1.6-7.5); PLATELET COUNT 358 10^3/UL (140-415); RED CELL DISTRIBUTION WIDTH 13.9 % (11.5-14.5)
[2016-06-14 07:08] LABS: ALBUMIN 3.5 g/dl (3.3-4.9)
[2016-06-14 07:09] LABS: POTASSIUM 3.9 mmol/L (3.5-5.1)
[2016-06-14 07:11] LABS: ALBUMIN/GLOBULIN RATIO 1.09; BILIRUBIN,INDIRECT 0.4 mg/dl (0-1.1); BILIRUBIN,TOTAL 0.4 mg/dl (0.2-1.3); CREATININE 0.63 mg/dl (0.44-1.00); TOTAL PROTEIN 6.7 g/dl (6.1-8.1)
[2016-06-14 07:12] LABS: CALCIUM 8.8 mg/dl (8.4-10.2)
[2016-06-14] MEDS: DEXTROSE 5%-0.45% NACL 1,000 ML IV SCH (08:00)
[2016-06-14 08:23] VITALS: BP 148/70; RESP 16
[2016-06-14] MEDS: FAMOTIDINE 20 MG INJ IV SCH (09:12)
[2016-06-14] MEDS: METHYLPREDNISOLONE 125 MG INJ IV SCH (09:12)
[2016-06-14] MEDS: INSULIN ASPART [NOVOLOG] 3 ML PEN SC SCH ×4 (09:13→13:08)
[2016-06-14] MEDS ORDERED: CEPH500C PO (11:04)
[2016-06-14] MEDS ORDERED: NOVO3I SC (11:04)
[2016-06-14] MEDS ORDERED: TRAM50TA2 GTB (11:04)
[2016-06-14] MEDS ORDERED: SENN-53 PO (11:04)
[2016-06-14] MEDS ORDERED: LANT3I SC (11:04)
--- NOTE | 2016-06-14 11:09 | PDOCDIS ---
Discharge Instructions DIAGNOSIS Discharge Diagnosis: 1. Cholecystitis 2. Pancreatitis 3. Transaminitis secondary to #1, 4. Diabe CONDITION Patient Condition: Stable HOME CARE INSTRUCTIONS: Special Diet: 1. Low-fat low-cholesterol carbohydrate controlled. Reduce calorie FOLLOW UP/APPOINTMENTS Appointments 1. Follow up with Dr. Reece Mccord in one week ARNAV DENT Jun 14, 2016 11:09
--- NOTE | 2016-06-14 13:51 | DS ---
Date/Time of Note Date/Time of Note DATE: 06/14/16 TIME: 13:48 Discharge Summary Admission/Discharge Info Admit Date/Time Jun 10, 2016 at 23:26 Discharge Date/Time Patient Condition: Stable Consults 1. Dr. Reece Mccord Hospital Course This is a 60-year-old female with history of diabetes, hypertension, dyslipidemia, who came to [facility] initially for epigastric pain and also right upper quadrant abdominal pain the morning of admission. She reported also having 3 episodes of nonbloody nonbilious emesis. She denied any fevers chills or chest pain or shortness of breath. She did have an ultrasound at outpatient Hospital that did show hepatic steatosis as well as gallbladder sludge and prominent caliber common bile duct suspicious for choledocholithiasis. Patient was transferred to [facility] due to insurance issue. Patient did get abdominal MRCP which did show cholelithiasis and gallbladder thickening but no evidence of choledocholithiasis seen. Patient was again seen by general surgeon. Prior to surgery we did optimize the patient. She was noted with some slight pancreatitis and for this she was provided with IV hydration and kept npo. She did tolerate well and she was also provided with analgesics. She did eventually receive laparoscopic cholecystectomy for which she did tolerate procedure well. She did report better resolution of her abdominal pain. Of note she did have a sequelae of transaminitis and leukocytosis secondary to her cholecystitis but this also did improve status post surgery. During her course of stay she did improve. She was otherwise optimized medically. She was continued on insulin for her diabetes and she was seen by natural resources extension educator. The plan of care was discussed with the patient and patient did verbalize her understanding. On the day of discharge patient was in stable condition Discussed in of care with Dr. Rodrigues Discharge process time is 40 minutes Disposition: Home Home Meds Active Scripts Cephalexin* (Cephalexin*) 500 Mg Capsule, 500 MG PO Q8, #15 CAP Prov:ARNAV DENT 06/14/16 Sennosides* (Senna Lax*) 8.6 Mg Tablet, 1 TAB PO Q12H Y for CONSTIPATION, #30 TAB Prov:ARNAV DENT 06/14/16 Insulin Aspart* (Novolog Insulin Pen*) 100 Unit/Ml Soln, 4 UNIT SC WITH MEALS for 30 Days Prov:ARNAV DENT 06/14/16 Insulin Glargine* (Lantus*) 100 Unit/Ml Soln, 12 UNIT SC HS for 30 Days Prov:ARNAV DENT 06/14/16 Reported Medications [capsaicin 0.025% ] No Conflict Check, 3 APPLIC TOPICAL 06/11/16 Insulin Aspart (Novolog) 100 Unit/1 Ml Cartridge, 100 UNIT SQ AC MEALS AND BEDTIME 06/11/16 Metformin HCl (Metformin HCl ER) 1,000 Mg [id number], 1000 MG PO BID, TAB 06/11/16 Naproxen* (Naprosyn*) 500 Mg Tablet, 500 MG PO BID, TAB 06/11/16 Simvastatin (Simvastatin) 20 Mg Tablet, 20 MG PO DAILY, #30 TAB 06/11/16 Cholecalciferol (Vitamin D3) 1,000 Unit Tab.chew, 1000 UNIT PO DAILY, TAB.CHEW 06/11/16 Lisinopril* (Lisinopril*) 40 Mg Tablet, 40 MG PO DAILY, #30 TAB 06/11/16 Omeprazole* (Omeprazole*) 20 Mg Capsule.dr, 20 MG PO DAILY, #30 CAP 06/11/16 Polyethylene Glycol* (Miralax*) 17 Gm Powd.pack, 17 GM PO DAILY, #30 PACKET 06/11/16 Sitagliptin* (Januvia*) 100 Mg Tablet, 100 MG PO DAILY, #30 TAB 06/11/16 Aspirin (Aspirin) 81 Mg Chew, 81 MG PO DAILY, TAB.CHEW 06/11/16 Glimepiride* (Glimepiride*) 4 Mg Tablet, 4 MG PO WITH BREAKFAST, TAB 06/11/16 Insulin Glargine* (Lantus*) 100 Unit/Ml Soln, 1 UNIT SC QHS, #1 VIAL 06/11/16 Hydrochlorothiazide (Hydrochlorothiazide) 12.5 Mg Capsule, 12.5 MG PO DAILY, # 30 CAP 06/11/16 Follow-up Plan CONDITION Patient Condition: Stable HOME CARE INSTRUCTIONS: Special Diet: 1. Low-fat low-cholesterol carbohydrate controlled. Reduce calorie FOLLOW UP/APPOINTMENTS Appointments 1. Follow up with Dr. Reece Mccord in one week Pending Labs Laboratory Tests Test 06/13/16 22:20 06/14/16 01:19 06/14/16 04:15 06/14/16 08:03 Bedside Glucose 232mg/dL (70-220) 230mg/dL (70-220) 213mg/dL (70-220) Alanine Aminotransferase (ALT/SGPT) 46IU/L (13-69) Albumin 3.5g/dl (3.3-4.9) Albumin/Globulin Ratio 1.09 Alkaline Phosphatase 80IU/L (42-121) Anion Gap 16 (8-16) Aspartate Amino Transf (AST/SGOT) 30IU/L (15-46) Basophils # 0.010^3/ul (0.0-0.1) Basophils % 0.1% (0.0-2.0) Blood Urea Nitrogen 13mg/dl (7-20) Calcium Level 8.8mg/dl (8.4-10.2) Carbon Dioxide Level 24mmol/L (21-31) Chloride Level 105mmol/L (97-110) Creatinine 0.63mg/dl (0.44-1.00) Direct Bilirubin 0.00mg/dl (0.00-0.20) Eosinophils # 0.010^3/ul (0.0-0.5) Eosinophils % 0.0% (0.0-7.0) Globulin 3.20g/dl (1.3-3.2) Glucose Level 246mg/dl (70-220) Hematocrit 34.5% (37.0-47.0) Hemoglobin 11.4g/dl (12.0-16.0) Indirect Bilirubin 0.4mg/dl (0-1.1) Lymphocytes # 1.210^3/ul (0.8-2.9) Lymphocytes % 10.8% (15.0-51.0) Mean Corpuscular Hemoglobin 30.0pg (29.0-33.0) Mean Corpuscular Hemoglobin Concent 33.0g/dl (32.0-37.0) Mean Corpuscular Volume 90.8fl (82.0-101.0) Mean Platelet Volume 10.1fl (7.4-10.4) Monocytes # 0.510^3/ul (0.3-0.9) Monocytes % 4.4% (0.0-11.0) Neutrophils # 9.310^3/ul (1.6-7.5) Neutrophils % 84.0% (39.0-77.0) Nucleated Red Blood Cells # 0.010^3/ul (0.0-0.0) Nucleated Red Blood Cells % 0.0/100WBC (0.0-0.0) Platelet Count 48771^3/UL (140-415) Potassium Level 3.9mmol/L (3.5-5.1) Red Blood Count 3.8010^6/ul (4.20-5.40) Red Cell Distribution Width 13.9% (11.5-14.5) Sodium Level 141mmol/L (135-144) Total Bilirubin 0.4mg/dl (0.2-1.3) Total Protein 6.7g/dl (6.1-8.1) White Blood Count 11.010^3/ul (4.8-10.8) Test 06/14/16 12:15 Bedside Glucose 257mg/dL (70-220) ARNAV DENT Jun 14, 2016 13:51
== END 2016-06-14 17:00 | disposition home or self-care (01) | DRG 417 ==
LOC: MS1 23:26
PROVIDERS: ADMIT Internal Medicine; ATTEND Internal Medicine
PROC: 0FT44ZZ Resection of Gallbladder, Percutaneous Endoscopic Approach (ICD-10-PCS; principal; 2016-06-13 18:30)
DX: K81.0 Acute cholecystitis (principal); K85.10 Biliary acute pancreatitis without necrosis or infection; I10 Essential (primary) hypertension; E11.9 Type 2 diabetes mellitus without complications; E78.5 Hyperlipidemia, unspecified
CPT/HCPCS: 71010; 74181; 76705; 80048; 80053; 82962; 83036; 83690; 83735; 85025; 85610; 88304; 93005; J0360; J0690; J1100; J1170; J1815; J2001; J2250; J2405; J2543; J2710; J2930; J3010; J7042

== ENCOUNTER 2017-01-21 16:03 | Day surgery (SDC) | payer OTHER ==
[~2017-01-21] VITALS: Ht 162.6 cm; Wt 76.4 kg
[2017-01-21 16:02] VITALS: Ht 162.6 cm; Wt 76.4 kg
[~2017-01-21 16:03] MED LIST: ASPI81TA3 PO; CAPSAICIN 0.025% TOPICAL; CEPH500C PO; CHOL100012 PO; GLIM4TAB PO; HYDR12.53 PO; LANT3I SC; LISI40TA9 PO; NAPR-260 PO; NOVO3I SC; OMEP20CA16 PO; POLY17PO6 PO; SENN-53 PO; SIMV20TA2 PO; TRAM50TA2 GTB
[2017-01-21] MEDS ORDERED: MOTRIN PO (16:13)
[2017-01-21 16:21] VITALS: BP 216/92; PULSE 76; RESP 21
--- NOTE | 2017-01-21 16:45 | OPPN ---
Date/Time of Note Date/Time of Note DATE: 01/21/17 TIME: 16:40 Proc Note GI Procedure Date 01/21/17 Indication: screening/surveillance Pre-procedure Diagnosis r/o colon polyps Post-procedure Diagnosis nodular cecum and rectum Procedure Performed: Colonoscopy Surgeon see signature line Migration Specialist none Anesthesia Type: moderate sedation Tourniquet Time none EBL none Transfusion required none Biopsy 1: cecum rectum Grafts/Implants none Tubes/Drains none Complication(s) none Disposition: home Procedure Description colonoscopy showed cecal nodularity and rectal nodularity bx done AURORA JIMENEZ MD Jan 21, 2017 16:45
[2017-01-21] MEDS ORDERED: FENTAnyl 50 MCG/ML VIAL ONE (16:56)
[2017-01-21] MEDS ORDERED: MIDAZOLAM 1 MG/ML 2 ML INJ ONE ×2 (16:56)
[2017-01-21 17:10] VITALS: BP 181/91; RESP 23
--- NOTE | 2017-01-22 07:04 | GILP ---
DATE OF PROCEDURE: PROCEDURE: Colonoscopy. PREOPERATIVE DIAGNOSIS: Rule out colon polyps. POSTOPERATIVE DIAGNOSES: Nodularity of the cecum, nodularity of the rectum. Biopsies were done. DESCRIPTION OF PROCEDURE: After informed written consent was obtained, the patient was asked to lie on the left lateral side. The patient was given intravenous anesthesia as noted in the nursing not es. When the patient became somnolent, the Olympus video colonoscope was introduced into the rectum and scope was advanced all the way to the cecum. The cecum showed evidence of nodularity. Biopsie s were done. Scope was withdrawn. On the way out, the rectum was also examined, which showed evide nce of a nodularity and this area also was biopsied. Rest of the colon appeared normal and the proc edure was terminated. PLAN: Recommend wait for the pathology report. Dictated By: AURORA SCHAFFER/NAYAN Conf#: [id number] DID#: [id number]
== END 2017-01-21 18:01 | disposition home or self-care (01) ==
LOC: GIL 16:03
PROVIDERS: ATTEND Internal Medicine Gastroenterology
DX: Z12.11 Encounter for screening for malignant neoplasm of colon (principal); K63.9 Disease of intestine, unspecified; K62.9 Disease of anus and rectum, unspecified; E11.9 Type 2 diabetes mellitus without complications
CPT/HCPCS: 45380; 82962; 88305; J2250; J3010; Z7610